=== PATIENT | female | born 1960 | race Caucasian/White ===

== ENCOUNTER 2016-12-23 14:16 | Emergency (ER) | payer OTHER ==
[2016-12-23 15:11] VITALS: BP 121/76
--- NOTE | 2016-12-23 15:22 | UC ---
Lower Extremity/Ankle HPI - HPI Summary HPI Summary: The patient comes in today for: 1. Right foot pain: Onset: 3 days. Palliative/provocative: Walking makes it worse. Quality: Throbbing--feels like when she broke a bone in the foot in the past. Region: Dorsum of the right foot. Severity: 8/10 with walking, but less at rest. Associated symptoms: Event: She dropped a "big" jar of [employer] on the instep of her right foot. Initially, there was pain. It was OK shortly thereafter. However, she did a 3 mile marybeth walk. She notice that night that there was increased pain. The increased pain has been persistent. She took two OTC Aleve twice a day for 1-2 days which did not clearly make a difference. * - History of Current Complaint Chief Complaint: UCLowerExtremity Stated Complaint: FOOT PAIN Time Seen by Provider: 12/23/16 15:15 Hx Obtained From: Patient - Allergies/Home Medications Allergies/Adverse Reactions: Allergies Allergy/AdvReac Type Severity Reaction Status Date / Time No Known Allergies Allergy Verified 12/17/14 08:07 PMH/Surg Hx/FS Hx/Imm Hx Previously Healthy: No - Allergies. - Surgical History Surgical History: Yes Surgery Procedure, Year, and Place: UTERINE ABLATION 2007 - Family History Known Family History: Positive: Hypertension Negative: Diabetes - Social History Occupation: Unemployed Alcohol Use: Weekly Alcohol Amount: 2 X A WEEK Substance Use Type: None Smoking Status (MU): Never Smoked Tobacco Review of Systems Constitutional: Negative Skin: Negative Eyes: Negative ENT: Negative Respiratory: Negative Cardiovascular: Negative Gastrointestinal: Negative Musculoskeletal: Arthralgia All Other Systems Reviewed And Are Negative: Yes Physical Exam Triage Information Reviewed: Yes Appearance: Well-Appearing, No Pain Distress, Well-Nourished, Other: - She prefers to walk to the x-ray department and does so without limping. Vital Signs: Initial Vital Signs Temp 98.8 F 12/23/16 15:05 Pulse 93 12/23/16 15:05 Resp 18 12/23/16 15:05 BP 121/75 12/23/16 15:05 Pulse Ox 99 12/23/16 15:05 Vital Signs Reviewed: Yes Eyes: Positive: Conjunctiva Clear. Negative: Discharge ENT: Positive: Hearing grossly normal. Negative: Pharyngeal erythema, Nasal congestion, Nasal drainage, TM bulging, TM dull, TM red, Tonsillar swelling, Tonsillar exudate Dental: Negative: Gross Decay/Caries @, Dental Fracture @ Neck: Positive: Supple, Nontender, No Lymphadenopathy. Negative: Nuchal Rigidity Respiratory: Positive: Chest non-tender, Lungs clear, No respiratory distress, No accessory muscle use. Negative: Rhonchi, Wheezing Cardiovascular: Positive: RRR, No Murmur Abdomen Description: Positive: Nontender, No Organomegaly, Soft. Negative: Distended, Guarding Musculoskeletal: Positive: Strength Intact, ROM Intact, No Edema, Other: - There is no ecchymosis or edema or pain with hyperflexion of the toes. Neurological: Positive: Alert, Muscle Tone Normal Psychological: Positive: Age Appropriate Behavior, Abnormal Response To Family Diagnostics - Radiology No standard instances Xray Interpretation: No Acute Changes - IMPRESSION: SOFT TISSUE SWELLING, NO FRACTURE IS SEEN. Radiology Interpretation Completed By: Radiologist Lower Extremity Course/Dx - Course Course Of Treatment: Patient reassurance given. - Differential Dx/Diagnosis Differential Diagnosis/HQI/PQRI: Cellulitis, Gout, Sprain Provider Diagnoses: Contusion right foot. Discharge - Discharge Plan Condition: Stable Disposition: HOME Patient Education Materials: Contusion in Adults (ED) Referrals: Diamante Brown MD [Primary Care Provider] - 1 Week (Please see your primary care provider in 1 weeks. If yoy get worse, please be seen sooner through your primary care provider us or the ER. If you can't get in timely, you can come in to see us.)
--- NOTE | 2016-12-23 15:47 | RAD ---
INDICATION: Right foot injury. TECHNIQUE: 3 views of the right foot were obtained. FINDINGS: There is soft tissue swelling present over the dorsal aspect of the midfoot. No fracture is seen. Joint spaces appear maintained. IMPRESSION: SOFT TISSUE SWELLING, NO FRACTURE IS SEEN.
== END 2016-12-23 16:14 | disposition home or self-care (01) ==
LOC: UCEAST 14:16
DX: S90.31XA Contusion of right foot, initial encounter (principal); W20.8XXA Other cause of strike by thrown, projected or falling object, initial encounter; Y92.9 Unspecified place or not applicable
CPT/HCPCS: 99211; G0463

== ENCOUNTER 2020-12-03 11:52 | Observation (INO) ==
[~2020-12-03 11:52] MED LIST: Buffered Lidocaine 1% SYRIN 1 ml INTRADERM ONE; Dexamethasone IV 4 MG/ML VIAL 1 ml VIAL ONE; DiMENhydriNATE IV 50 mg/ml 1 ml VIAL IV PUSH ONE; Glycopyrrolate IV 0.2 MG/ML 1 ML VIAL ONE; HYDROcodone/ACETAMIN 5/325 mg TAB PO PRN; Ketamine HCL 50 mg/ml 10 ml VIAL (500 MG) ONE; Lactated Ringers 1000 ml BAG 1,000 ML IV SCH; Lidocaine 2% PF 5 ML VIAL ONE; Metoclopramide 5 MG/ML VIAL (10 mg) IV PRN; Naloxone 0.4 mg VIAL 0.4 mg/ml 1 ml VIAL IV PRN; Ondansetron 4 mg VIAL 2 MG/ML 2 ml VIAL IV PRN; Ondansetron 4 mg VIAL 2 MG/ML 2 ml VIAL ONE; Phenylephrine IV 10 MG/ML 1 ml VIAL ONE; Propofol 10 MG/ML 20 ML BTL ONE; Propofol 10 mg/ml 100 ML BTL 100 ML ONE; fentaNYL 100 mcg/2 ml 50 MCG/ML VIAL IV PRN
[2020-12-03] MEDS ORDERED: DiMENhydriNATE IV 50 mg/ml 1 ml VIAL ONE (12:14)
[2020-12-03] MEDS ORDERED: ceFAZolin 2 GM PREMIX 2 GM/50 ML BAG ONE (12:14)
[2020-12-03] MEDS ORDERED: Midazolam 2 mg/2 ml VIAL 1 mg/ml 2 ml VIAL (2 mg) ONE (12:51)
[2020-12-03] MEDS ORDERED: fentaNYL 100 mcg/2 ml 50 MCG/ML VIAL ONE (12:51)
[2020-12-03] MEDS ORDERED: Dexamethasone IV 4 MG/ML VIAL 1 ml VIAL ONE (12:51)
[2020-12-03] MEDS ORDERED: Bupivacaine 0.5% 50 ML MDV VIAL ONE (12:53)
[2020-12-03] MEDS ORDERED: ROPIVACAINE 5 MG/ML 30 ML BTL (0.5%) ONE (13:31)
[2020-12-03] MEDS ORDERED: diPHENhydraMINE IV 50 MG/ML 1 ml VIAL (BENADRYL) IV PRN (16:32)
[2020-12-03] MEDS ORDERED: Ondansetron 4 mg VIAL 2 MG/ML 2 ml VIAL IV PRN (16:32)
[2020-12-03] MEDS ORDERED: Ondansetron ODT 4 mg TAB 4 MG TAB PO PRN (16:32)
[2020-12-03] MEDS ORDERED: Magnesium Hydroxide LIQ 30 ML UDC PO PRN (16:32)
[2020-12-03] MEDS ORDERED: diPHENhydraMINE 25 mg TAB PO PRN (16:32)
[2020-12-03] MEDS ORDERED: oxyCODONE/Acetamin 5/325 mg TAB PO PRN (16:32)
[2020-12-03] MEDS ORDERED: Lactulose 30 ml UDC PO PRN (16:32)
[2020-12-03] MEDS ORDERED: Morphine 2 MG/ML SYRINGE IV PRN (16:32)
[2020-12-03] MEDS ORDERED: HYDROcodone/ACETAMIN 5/325 mg TAB ONE (17:04)
[2020-12-03] MEDS: Lactated Ringers 1000 ml BAG 1,000 ML IV SCH (17:30)
[2020-12-03] MEDS: oxyCODONE/Acetamin 5/325 mg TAB PO PRN (18:38)
[2020-12-03] MEDS ORDERED: HYDROmorphone 1 MG/1 ML SYRINGE IV SLOW PU PRN (20:53)
[2020-12-03] MEDS: Magnesium Hydroxide LIQ 30 ML UDC PO SCH (21:14)
[2020-12-03] MEDS: ceFAZolin 1 GM ADVAN 1 GM in NS 0.9% 50 ML 50 ML IVPB SCH (22:24)
[2020-12-04] MEDS: oxyCODONE/Acetamin 5/325 mg TAB PO PRN ×4 (00:50→13:28)
[2020-12-04] MEDS: Lactated Ringers 1000 ml BAG 1,000 ML IV SCH (03:34)
[2020-12-04] MEDS: ceFAZolin 1 GM ADVAN 1 GM in NS 0.9% 50 ML 50 ML IVPB SCH ×2 (05:24→12:38)
[2020-12-04 05:45] LABS: Hematocrit 36 % (35-47); Hemoglobin 12.5 g/dL (12.0-16.0); Mean Platelet Volume 7.6 fL (7.4-10.4); Platelet Count 302 10^3/uL (150-450)
[2020-12-04 06:03] LABS: Calcium 8.8 mg/dL (8.6-10.3); EGFR African American 107.9 (>60); EGFR Non-African American 89.2 (>60); Potassium 4.3 mmol/L (3.5-5.0)
[2020-12-04] MEDS ORDERED: Vitamin THERAPEUTIC TAB PO SCH (09:00)
[2020-12-04] MEDS: Magnesium Hydroxide LIQ 30 ML UDC PO SCH (09:36)
[2020-12-04 11:21] VITALS: BP 112/64
== END 2020-12-04 13:30 | disposition home or self-care (01) ==
LOC: OR 11:52 → INTOOBSV 16:32 → SSU 16:32
PROVIDERS: ADMIT Orthopaedic Surgery Adult Reconstructive Orthopaedic Surgery; ATTEND Orthopaedic Surgery Adult Reconstructive Orthopaedic Surgery